=== PATIENT | male | born 1995 | race Caucasian/White ===

== ENCOUNTER 2023-11-09 14:48 | Emergency (ER) | payer MEDICAID, OTHER ==
[~2023-11-09] VITALS: Ht 162.6 cm; Wt 100.0 kg
[2023-11-09 16:23] VITALS: O2SAT 100
[2023-11-09] MEDS: LORAZEPAM 1MG TABLET PO ONE (17:00)
[2023-11-09] MEDS: MORPHINE SULFATE 4 MG/ML INJ (FOR IV/IM USE) IV STA (17:12)
[2023-11-09] MEDS: ONDANSETRON HCL 4MG/2ML INJ IV STA (17:12)
[2023-11-09] MEDS: FAMOTIDINE 20MG/2ML VIAL IV STA (17:12)
[2023-11-09 17:26] LABS: BASOPHILS % 0.3 % (0.0-2.0); EOSINOPHILS % 1.8 % (0.0-5.0); HEMATOCRIT. 43.8 % (42.0-52.0); HEMOGLOBIN. 14.7 g/dL (14.0-18.0); LYMPHOCYTES % 21.1 % (20.0-50.0); MEAN CORPUSCULAR HEMOGLOBIN 29.8 pg (28.0-32.0); MEAN CORPUSCULAR HGB CONC 33.6 g/dL (31.0-37.0); MEAN CORPUSCULAR VOLUME 88.5 fL (80.0-94.0); MEAN PLATELET VOLUME 8.3 fl (7.4-10.4); MONOCYTES % 6.6 % (2.0-8.0); NEUTROPHILS % 70.2 % (40.0-76.0); PLATELET 211 x1000/uL (130-400); RED BLOOD CELL COUNT 4.94 mill/uL (4.7-6.1); RED CELL DISTRIBUTION WIDTH 13.7 % (11.6-14.6); WHITE BLOOD COUNT 7.3 x1000/uL (4.5-11.0)
[2023-11-09] MEDS: SODIUM CHLORIDE 0.9% 1,000 ML IV ONE (17:27)
[2023-11-09 17:33] LABS: CARBON DIOXIDE 28 mEq/L (21-32); CHLORIDE 99 mEq/L (98-107); POTASSIUM 3.8 mEq/L (3.5-5.1); SODIUM 136 mEq/L (136-145)
[2023-11-09 17:34] LABS: CALCIUM 10.4 mg/dL (8.7-10.4)
[2023-11-09 17:38] LABS: CREATININE 0.9 mg/dL (0.6-1.3); GLUCOSE 104 mg/dL (70-105)
[2023-11-09 17:39] LABS: UREA NITROGEN BLOOD 10 mg/dL (9-23)
[2023-11-09 17:40] LABS: ALANINE AMINOTRANSFERASE 24 IU/L (10-49); ASPARTATE AMINOTRANSFERASE 45 IU/L (<34)
[2023-11-09 17:41] LABS: ALBUMIN 5.2 g/dL (3.2-4.8)
[2023-11-09 17:46] LABS: ETHANOL BLOOD < 10 mg/dL (<10)
[2023-11-09] MEDS ORDERED: CHLO25CA10 MT (18:52)
[2023-11-09] MEDS ORDERED: ONDA4TAB11 PO (19:21)
[2023-11-09] MEDS: CHLORDIAZEPOXIDE 25MG CAPSULE PO ONE (19:47)
[2023-11-09 20:00] VITALS: BP 142/99; PULSE 96; RESP 20; TEMP 97.9
== END 2023-11-09 20:04 | disposition home or self-care (01) ==
LOC: ER 15:22
DX: F10.239 Alcohol dependence with withdrawal, unspecified (principal); R25.1 Tremor, unspecified; F41.9 Anxiety disorder, unspecified; Y90.0 Blood alcohol level of less than 20 mg/100 ml
CPT/HCPCS: 80053; 80320; 83690; 83735; 85025; 36415; 96361; 96374; 96375; 99284; J3490; J2405; J2270; J7030; Z7610 ×2; G0480

== ENCOUNTER 2024-03-31 21:48 | Emergency (ER) | payer OTHER ==
[~2024-03-31] VITALS: Ht 175.3 cm; Wt 91.0 kg
[~2024-03-31 21:48] MED LIST: CHLO25CA10 MT; ONDA-239 PO
[2024-03-31 21:53] VITALS: BP 129/86; PULSE 103; RESP 18; TEMP 96.2; O2SAT 95
[2024-03-31] MEDS: SODIUM CHLORIDE 0.9% 1,000 ML IV ONE (22:15)
[2024-04-01 00:16] LABS: HEMATOCRIT. 45.9 % (42.0-52.0); HEMOGLOBIN. 15.4 g/dL (14.0-18.0); LYMPHOCYTES % 46.1 % (20.0-50.0); MEAN CORPUSCULAR HEMOGLOBIN 30.9 pg (28.0-32.0); MEAN CORPUSCULAR HGB CONC 33.5 g/dL (31.0-37.0); MEAN CORPUSCULAR VOLUME 92.4 fL (80.0-94.0); MEAN PLATELET VOLUME 8.3 fl (7.4-10.4); NEUTROPHILS % 44.9 % (40.0-76.0); PLATELET 216 x1000/uL (130-400); RED BLOOD CELL COUNT 4.97 mill/uL (4.7-6.1); RED CELL DISTRIBUTION WIDTH 14.1 % (11.6-14.6); WHITE BLOOD COUNT 5.5 x1000/uL (4.5-11.0)
[2024-04-01 00:22] LABS: CHLORIDE 111 mEq/L (98-107); SODIUM 149 mEq/L (136-145)
[2024-04-01 00:23] LABS: CALCIUM 9.4 mg/dL (8.7-10.4); CARBON DIOXIDE 25 mEq/L (21-32)
[2024-04-01 00:28] LABS: CREATININE 0.9 mg/dL (0.6-1.3); GLUCOSE 98 mg/dL (70-105); UREA NITROGEN BLOOD 7 mg/dL (9-23)
[2024-04-01 00:30] LABS: ACETAMINOPHEN < 2 ug/mL (10-30)
[2024-04-01 01:25] LABS: ETHANOL BLOOD 563 mg/dL (<10)
== END 2024-04-01 05:46 | disposition left against medical advice (07) ==
LOC: ER 21:48 → EDBEDREQ 04-01 04:10 → ER 04-01 05:46 → CANBEDREQ 04-01 05:46
DX: R41.82 Altered mental status, unspecified (principal)
CPT/HCPCS: 36415; 71045; 70450; 96360; 96361; 99284; 80048; 80307; 80329; 80320; 85025; J7030; G0480

== ENCOUNTER 2025-01-25 15:40 | Emergency (ER) | payer OTHER ==
[~2025-01-25] VITALS: Ht 165.1 cm; Wt 87.0 kg
[~2025-01-25 15:40] MED LIST changes: +PROT40 MT; +THIA100T72 MT
[2025-01-25 15:46] VITALS: O2SAT 97
[2025-01-25 16:22] LABS: BASOPHILS % 0.9 % (0.0-2.0); EOSINOPHILS % 0.2 % (0.0-5.0); HEMATOCRIT. 45.2 % (42.0-52.0); HEMOGLOBIN. 15.3 g/dL (14.0-18.0); LYMPHOCYTES % 28.0 % (20.0-50.0); MEAN PLATELET VOLUME 7.9 fl (7.4-10.4); MONOCYTES % 5.6 % (2.0-8.0); NEUTROPHILS % 65.3 % (40.0-76.0); PLATELET 249 x1000/uL (130-400); RED BLOOD CELL COUNT 4.99 mill/uL (4.7-6.1); RED CELL DISTRIBUTION WIDTH 16.1 % (11.6-14.6)
[2025-01-25 16:32] LABS: CREATININE 1.0 mg/dL (0.6-1.3); UREA NITROGEN BLOOD 10 mg/dL (9-23)
[2025-01-25] MEDS: CHLORDIAZEPOXIDE 25MG CAPSULE PO PRN (16:47)
[2025-01-25] MEDS: FOLIC ACID 1MG TABLET PO SCH (16:47)
[2025-01-25] MEDS: MULTIVITAMINS,THER W-MINERALS TABLET PO SCH (16:48)
[2025-01-25] MEDS: THIAMINE HCL 100 MG/1 ML 2ML VIAL IM SCH (17:06)
[2025-01-25] MEDS ORDERED: CHLO25CA11 MT (18:07)
[2025-01-25] MEDS ORDERED: CHLO25CA10 MT ×2 (18:07→18:09)
[2025-01-25 18:22] VITALS: BP 146/112; PULSE 99; RESP 18; TEMP 36.3; O2SAT 100
[2025-01-25 18:27] LABS: CLARITY URINE CLEAR (CLEAR); GLUCOSE URINE NEGATIVE (NEGATIVE); KETONES URINE 2+ (NEGATIVE); LEUKOCYTE ESTERASE URINE NEGATIVE (NEGATIVE); NITRITE URINE NEGATIVE (NEGATIVE); OCCULT BLOOD URINE NEGATIVE (NEGATIVE); PH URINE 5.5 (4.5-8.0); PROTEIN URINE 2+ (NEGATIVE); SPECIFIC GRAVITY URINE 1.021 (1.005-1.030); UROBILINOGEN URINE 1.0 E.U./dL (0.2-1.0)
[2025-01-25 19:07] LABS: COLOR URINE YELLOW (YELLOW); RBC URINE NONE SEEN /hpf (0-2); WBC URINE 0-2 /hpf (0-2)
[2025-01-25 19:08] LABS: BACTERIA URINE NONE SEEN; COARSE GRANULAR CASTS URINE 0-5 /lpf; MUCUS URINE 1+ /lpf (NONE/TRACE); SQUAMOUS EPITHELIAL CELL URINE RARE /lpf (RARE/1+)
[2025-01-28] MEDS ORDERED: THIAMINE HCL 100MG TABLET PO SCH (09:00)
== END 2025-01-25 18:23 | disposition home or self-care (01) ==
LOC: ER 15:40
DX: F10.129 Alcohol abuse with intoxication, unspecified (principal); F10.139 Alcohol abuse with withdrawal, unspecified; Z59.00 Homelessness unspecified; Z79.899 Other long term (current) drug therapy; Y90.8 Blood alcohol level of 240 mg/100 ml or more
CPT/HCPCS: 80048; 81003; 80320; 85025; 36415; 93005; 96372; 99284; J3411; Z7610; G0480

== ENCOUNTER 2025-01-25 18:33 | Emergency (ER) | payer OTHER ==
[~2025-01-25 18:33] MED LIST changes: +CHLO25CA11 MT
== END 2025-01-25 19:17 | disposition left against medical advice (07) ==
LOC: ER 18:33
DX: F10.939 Alcohol use, unspecified with withdrawal, unspecified (principal); Z53.21 Procedure and treatment not carried out due to patient leaving prior to being seen by health care provider; Y90.9 Presence of alcohol in blood, level not specified

== ENCOUNTER 2025-01-25 20:07 | Emergency (ER) | payer OTHER ==
[~2025-01-25] VITALS: Ht 172.7 cm; Wt 77.0 kg
[2025-01-25 20:09] VITALS: O2SAT 100
[2025-01-25] MEDS: CHLORDIAZEPOXIDE 25MG CAPSULE PO ONE (22:13)
[2025-01-25] MEDS: SODIUM CHLORIDE 0.9% 1,000 ML IV ONE (22:13)
[2025-01-25 22:21] LABS: CREATININE 1.0 mg/dL (0.6-1.3)
[2025-01-25 22:22] LABS: UREA NITROGEN BLOOD 12 mg/dL (9-23)
[2025-01-25 22:35] LABS: ETHANOL BLOOD 428 mg/dL (<10)
[2025-01-25 22:57] VITALS: BP 141/86; PULSE 119; RESP 16; TEMP 36.9; O2SAT 99
== END 2025-01-25 23:35 | disposition left against medical advice (07) ==
LOC: ER 20:07
DX: F10.129 Alcohol abuse with intoxication, unspecified (principal); Z79.899 Other long term (current) drug therapy; Y90.8 Blood alcohol level of 240 mg/100 ml or more
CPT/HCPCS: 80048; 80320; 36415; 96360; 99283; J7030; Z7610; A4606; G0480